=== PATIENT | female | born 1970 | race African-American/Black ===

== ENCOUNTER 2021-03-27 08:43 | Emergency (ER) | payer OTHER ==
[~2021-03-27] VITALS: Ht 167.6 cm; Wt 65.8 kg
--- NOTE | 2021-03-27 08:46 | NUR ---
Patient BIB EMS to bed 9 at this time.
[2021-03-27 08:47] VITALS: BP 97/56
--- NOTE | 2021-03-27 08:48 | NUR ---
Georgia lockhart in [facility] - 03/27/21 at 0909 by [email or web address] TEOFILO TO BED
--- NOTE | 2021-03-27 09:00 | NUR ---
50 Y/O FEMALE BIBA C/O L LEG PAIN RADIATING FROM LOWER BACK DOWN TO TOES. PT REPORTS SLIPPING X2 DAYS AGO AND HAS HAD THE PAIN SINCE. DENIES HITTING HEAD. PT TOOK GABAPENTIN, ADVIL AND BACLOFEN TODAY WITHOUT RELIEF. PT APPEARS VERY RESTLESS, CONSTANTLY MOVING. PT REPORTS SMOKING MARIJUANA YESTERDAY THEN FOUND OUT IT WAS LACED WITH COCAINE. PT STATES 10/10 CRAMPING PAIN TO BILAT LEGS. SKIN WARM AND DRY. VSS. PMH:ARTHRITIS, TENDONITIS, NEUROPATHY, BREAST CANCER NKDA
--- NOTE | 2021-03-27 09:17 | NUR ---
DR COVINGTON AT BEDSIDE EVALUATING PT
[2021-03-27] MEDS ORDERED: ACETAMINOPHEN EXTRA STRENGTH 500 MG TAB PO ONE (09:25)
[2021-03-27] MEDS ORDERED: KETOROLAC 60 MG/2 ML VIAL IM ONE (09:25)
[2021-03-27] MEDS ORDERED: CYCL-711 PO (09:40)
[2021-03-27] MEDS ORDERED: ACET-10509 PO (09:40)
[2021-03-27] MEDS ORDERED: LID5T TP (09:40)
[2021-03-27] MEDS ORDERED: IBUP-2213 PO (09:40)
--- NOTE | 2021-03-27 09:40 | NUR ---
PT REQUESTING FOR CRACKERS AND JUICE, PER DR NADYA BATISTA TO GIVE. PROVIDED APPLE JUICE AND ANNIA AMAYA.
[2021-03-27 10:01] VITALS: BP 118/82
--- NOTE | 2021-03-27 10:01 | NUR ---
Patient discharged with v/s stable. Written and verbal after care instructions ABOUT [facility] given and explained. Patient alert, oriented and verbalized understanding of instructions. Ambulatory with steady gait. All questions addressed prior to discharge. ID band removed. Patient advised to follow up with PMD. Rx of TYLENOL EXTRA STRENGTH, FLEXERIL, IBUPROFEN AND LIDOCAINE PATCH given. Patient educated on indication of medication including possible reaction and side effects. Opportunity to ask questions provided and answered.
== END 2021-03-27 10:01 | disposition home or self-care (01) ==
LOC: MED 08:43
DX: M54.42 Lumbago with sciatica, left side (principal); Z79.899 Other long term (current) drug therapy
CPT/HCPCS: 96372; 99283; J1885